=== PATIENT | female | born 1960 | race African-American/Black ===

== ENCOUNTER 2018-02-12 16:57 | Inpatient (IN) | payer OTHER ==
[~2018-02-12] VITALS: Ht 170.2 cm; Wt 77.6 kg
[2018-02-12 16:58] VITALS: BP 143/79
[2018-02-12 17:52] LABS: BILIRUBIN NEGATIVE (NEGATIVE); BLOOD NEGATIVE (NEGATIVE); CLARITY CLEAR (CLEAR); COLOR YELLOW (YELLOW); GLUCOSE 3+ (NEGATIVE); KETONE 1+ (NEGATIVE); LEUKO ESTERASE NEGATIVE (NEGATIVE); NITRITE NEGATIVE (NEGATIVE); SPECIFIC GRAVITY <= 1.005 (1.005-1.030); UROBILINOGEN 0.2 E.U./dl (0.2-1.0)
[2018-02-12 17:52] LABS: BASO % 0.5 % (0.0-1.0); HEMATOCRIT 38.7 % (37.0-47.0); HEMOGLOBIN 12.5 g/dl (12.0-16.0); LYMPH # 0.8 10*3/uL (1.3-4.4); LYMPH % 9.1 % (27.0-41.0); MEAN CELL VOLUME 91.7 fl (81.0-99.0); MEAN CORPUSCULAR HGB 29.6 pg (27.0-31.0); MEAN CORPUSCULAR HGB CONC 32.3 g/dl (33.0-37.0); MEAN PLATELET VOLUME 9.3 fl (9.6-12.3); MONO # 0.4 10*3/uL (0.1-1.0); NEUT # 7.6 10*3/uL (2.3-7.9); NEUT % 85.9 % (47.0-73.0); PLATELET COUNT AUTOMATED 356 10*3/uL (130-400); RED BLOOD COUNT 4.22 10*6/uL (4.10-5.10); RED CELL DISTRI WIDTH 13.1 % (0-14.5); WHITE BLOOD COUNT 8.8 10*3/uL (4.8-10.8)
[2018-02-12 18:00] LABS: URINE AMPHETAMINES < 1000 (1000ng/ml); URINE BARBITURATES < 200 (200ng/ml); URINE BENZODIAZEPINES < 200 (200ng/ml); URINE CANNABINOIDS (THC) < 50 (50ng/ml); URINE COCAINE > 300 (300ng/ml); URINE METHADONE < 300 (300ng/ml); URINE OPIATES < 300 (300ng/ml)
[2018-02-12 18:01] LABS: URINE PHENCYCLIDINE < 25 (25ng/ml)
[2018-02-12] MEDS ORDERED: GABAPENTIN800 MG PO (18:01)
[2018-02-12] MEDS ORDERED: LANTUS SOL100 UNIT/1 SQ (18:02)
[2018-02-12 18:03] LABS: WBC 16-20 wbc/hpf (0-5)
[2018-02-12] MEDS ORDERED: HUMALOG100 UNIT/2 SQ (18:06)
[2018-02-12 18:07] LABS: ALBUMIN 4.2 gm/dl (3.1-4.5); ALKALINE PHOSPHATASE 146 U/L (45-117); BUN 24 mg/dl (7-24); CHLORIDE 99 mmol/L (98-107); CREATININE 1.37 mg/dL (0.55-1.02); POTASSIUM 4.5 mmol/L (3.5-5.1); SGOT/AST 14 IU/L (3-35); SGPT/ALT 25 U/L (12-78); SODIUM 135 mmol/L (136-145); TOTAL PROTEIN 8.5 gm/dL (6.4-8.2)
[2018-02-12 18:25] LABS: ETHYL ALCOHOL < 3.0 mg/dl (<3)
[2018-02-12 18:35] LABS: ACETAMINOPHEN (TYLENOL) < 2.0 ug/ml (10-30)
[2018-02-12 20:20] VITALS: BP 167/73
[2018-02-12 20:24] VITALS: BP 138/90
[2018-02-12] MEDS ORDERED: AMOXICILLIN500 M2 PO (20:49)
[2018-02-12] MEDS ORDERED: PREDNISONE20 M1 PO (20:51)
[2018-02-13] VITALS: BP 110/60
[2018-02-13 06:04] LABS: BUN 19 mg/dl (7-24); CHLORIDE 111 mmol/L (98-107); CREATININE 0.73 mg/dL (0.55-1.02); POTASSIUM 3.9 mmol/L (3.5-5.1); SODIUM 143 mmol/L (136-145)
[2018-02-13 08:00] VITALS: BP 117/64
[2018-02-13] MEDS ORDERED: MULTI-VITAMIN1 EACH PO (10:45)
[2018-02-13] MEDS ORDERED: VITAMIN D35000 UNIT PO (10:46)
[2018-02-13] MEDS ORDERED: LIPITOR40 MG PO (10:46)
[2018-02-13 12:00] VITALS: BP 130/79
[2018-02-13 16:00] VITALS: BP 135/76
[2018-02-13 20:00] VITALS: BP 117/55
[2018-02-14] VITALS: BP 114/70
[2018-02-14 08:00] VITALS: BP 132/73
[2018-02-14 12:00] VITALS: BP 86/73
[2018-02-14 16:00] VITALS: BP 151/77
[2018-02-14 20:00] VITALS: BP 132/67
[2018-02-14 23:54] LABS: BASO % 0.6 % (0.0-1.0); EOS # 0.3 10*3/uL (0.0-0.4); EOS % 4.2 % (1.0-4.0); HEMATOCRIT 33.1 % (37.0-47.0); HEMOGLOBIN 10.5 g/dl (12.0-16.0); LYMPH # 2.4 10*3/uL (1.3-4.4); LYMPH % 35.6 % (27.0-41.0); MEAN CORPUSCULAR HGB 29.5 pg (27.0-31.0); MEAN CORPUSCULAR HGB CONC 31.7 g/dl (33.0-37.0); MEAN PLATELET VOLUME 9.2 fl (9.6-12.3); MONO # 0.5 10*3/uL (0.1-1.0); MONO % 7.9 % (3.0-9.0); NEUT # 3.4 10*3/uL (2.3-7.9); NEUT % 51.3 % (47.0-73.0); PLATELET COUNT AUTOMATED 312 10*3/uL (130-400); RED BLOOD COUNT 3.56 10*6/uL (4.10-5.10); RED CELL DISTRI WIDTH 13.2 % (0-14.5); WHITE BLOOD COUNT 6.7 10*3/uL (4.8-10.8)
[2018-02-15] VITALS (8 sets, daily range): BP systolic 107–169; BP diastolic 59–99
[2018-02-15 00:04] LABS: ACT PARTIAL THROMBO TIME 22.1 SECONDS (20.8-31.5); INTERNATIONAL NORM RATIO 0.9 (2.0-3.5)
[2018-02-15 00:10] LABS: ALBUMIN 3.2 gm/dl (3.1-4.5); ALKALINE PHOSPHATASE 106 U/L (45-117); BUN 16 mg/dl (7-24); CHLORIDE 105 mmol/L (98-107); CREATININE 0.79 mg/dL (0.55-1.02); PHOSPHOROUS 3.6 mg/dL (2.5-4.9); POTASSIUM 3.7 mmol/L (3.5-5.1); SGOT/AST 6 IU/L (3-35); SGPT/ALT 15 U/L (12-78); SODIUM 142 mmol/L (136-145); TOTAL PROTEIN 6.7 gm/dL (6.4-8.2)
[2018-02-15 00:11] LABS: TROPONIN I < 0.015 ng/ml (<0.045)
[2018-02-15 01:20] LABS: URINE AMPHETAMINES < 1000 (1000ng/ml); URINE BARBITURATES < 200 (200ng/ml); URINE BENZODIAZEPINES > 200 (200ng/ml); URINE COCAINE < 300 (300ng/ml); URINE METHADONE < 300 (300ng/ml); URINE OPIATES < 300 (300ng/ml)
[2018-02-15 01:21] LABS: URINE CANNABINOIDS (THC) < 50 (50ng/ml); URINE PHENCYCLIDINE < 25 (25ng/ml)
[2018-02-15 14:37] LABS: BASO # 0.1 10*3/uL (0.0-0.1); BASO % 1.2 % (0.0-1.0); EOS # 0.2 10*3/uL (0.0-0.4); EOS % 4.5 % (1.0-4.0); HEMATOCRIT 32.7 % (37.0-47.0); HEMOGLOBIN 10.4 g/dl (12.0-16.0); LYMPH # 1.6 10*3/uL (1.3-4.4); LYMPH % 31.6 % (27.0-41.0); MEAN CELL VOLUME 92.1 fl (81.0-99.0); MEAN CORPUSCULAR HGB 29.3 pg (27.0-31.0); MEAN CORPUSCULAR HGB CONC 31.8 g/dl (33.0-37.0); MEAN PLATELET VOLUME 8.5 fl (9.6-12.3); MONO # 0.4 10*3/uL (0.1-1.0); MONO % 8.6 % (3.0-9.0); NEUT # 2.7 10*3/uL (2.3-7.9); NEUT % 53.5 % (47.0-73.0); PLATELET COUNT AUTOMATED 282 10*3/uL (130-400); RED BLOOD COUNT 3.55 10*6/uL (4.10-5.10); WHITE BLOOD COUNT 5.1 10*3/uL (4.8-10.8)
[2018-02-15 14:44] LABS: ALKALINE PHOSPHATASE 111 U/L (45-117); BUN 12 mg/dl (7-24); CHLORIDE 106 mmol/L (98-107); CREATININE 0.82 mg/dL (0.55-1.02); POTASSIUM 3.8 mmol/L (3.5-5.1); SGOT/AST 8 IU/L (3-35); SGPT/ALT 15 U/L (12-78); SODIUM 142 mmol/L (136-145); TOTAL PROTEIN 6.5 gm/dL (6.4-8.2)
[2018-02-16] VITALS: BP 152/68
[2018-02-16 04:00] VITALS: BP 148/62
[2018-02-16 07:45] VITALS: BP 172/92; BP 712/92
[2018-02-16] MEDS ORDERED: NATURE'S BLEND100 M2 PO (11:35)
[2018-02-16] MEDS ORDERED: Humalog SQ ×2 (11:35→11:45)
[2018-02-16] MEDS ORDERED: NATURE'S BLEND F1 MG PO (11:35)
[2018-02-16] MEDS ORDERED: ATARAX,VISTARIL50 MG PO (11:35)
[2018-02-16] MEDS ORDERED: Lantus SC ×2 (11:35→11:45)
== END 2018-02-16 12:23 | disposition home or self-care (01) | DRG 682 ==
LOC: ED 16:57 → EDHOLD 19:40 → 5E 19:40
PROVIDERS: Internal Medicine; Physician Assistant
DX: N17.0 Acute kidney failure with tubular necrosis (principal); G93.41 Metabolic encephalopathy; E83.41 Hypermagnesemia; E11.65 Type 2 diabetes mellitus with hyperglycemia; F10.230 Alcohol dependence with withdrawal, uncomplicated; E87.1 Hypo-osmolality and hyponatremia; F31.30 Bipolar disorder, current episode depressed, mild or moderate severity, unspecified; R07.9 Chest pain, unspecified; F14.10 Cocaine abuse, uncomplicated; F41.9 Anxiety disorder, unspecified; E86.0 Dehydration; R74.8 Abnormal levels of other serum enzymes; R82.4 Acetonuria; R81 Glycosuria; D72.810 Lymphocytopenia; I10 Essential (primary) hypertension; E78.5 Hyperlipidemia, unspecified; G62.9 Polyneuropathy, unspecified; E66.3 Overweight; F19.10 Other psychoactive substance abuse, uncomplicated; Z90.710 Acquired absence of both cervix and uterus; Z82.49 Family history of ischemic heart disease and other diseases of the circulatory system; Z79.4 Long term (current) use of insulin; Z80.9 Family history of malignant neoplasm, unspecified; Z68.26 Body mass index [BMI] 26.0-26.9, adult

== ENCOUNTER 2018-11-16 16:05 | Inpatient (IN) | payer OTHER ==
[~2018-11-16] VITALS: Ht 170.1 cm; Wt 68.0 kg
--- NOTE | ~2018-11-16 | PN ---
[place], [place] PROGRESS NOTE NAME: NOAH HUFF UNIT #: [id number] ROOM: 310 DOCTOR: NETO REGALADO MD BIRTHDATE: [birth year] DATE: 11/20/18 ADDENDUM: Resident note reviewed. Agree with observations, recommendations, and overall treatment plan. NETO REGALADO MD CM:PNTRANS [id number] NETO REGALADO MD 12/19/18 1413 TORIBIO HUMPHRIES MIS.LLR
--- NOTE | ~2018-11-16 | DS ---
[place], [place] DISCHARGE SUMMARY [id number] UN[facility] #: [id number] ROOM: 310 DOCTOR: NETO REGALADO MD BIRTHDATE: [birth year] DOS: 11/22/2018 CHIEF COMPLAINT: "I am addicted and I need to go to rehab". HISTORY OF PRESENT ILLNESS: This is a 58-year-old black female who has a lengthy history of depression. She presented to [facility] Emergency Room for psychiatric evaluation. She recently was discharged from the medical floor where she had had suicidal ideation as well as some physical complaints that include chest pain. The patient was at [facility] and stated that she was tired of living and she was then subsequently brought into the Emergency Room for evaluation. The patient endorses a history of alcohol and cocaine abuse. Psychiatrically, she endorses significant depression with multiple neurovegetative symptoms that include poor sleep and appetite, anergia, anhedonia, hopeless, helpless feelings, crying spells, and inability to cope. She also has command auditory hallucinations telling her to hurt herself. She was admitted to rule out organic factors and to stabilize on medication. SUMMARY OF HOSPITAL COURSE: The patient was admitted and routine laboratory examinations revealed her to have a low vitamin D level of 30. She was started on vitamin D 50,000 International Units weekly. She was continued on her multivitamin regimen because of her history of substance abuse. Remeron 15 mg at bedtime was started to combat the depression. This was later increased to 30 mg at bedtime to lessen sedation. The patient was started ultimately on Latuda 40 mg at bedtime to combat on the command auditory hallucinations. The dose was increased to 80 mg at bedtime with good effect. The patient slept well. The auditory hallucinations eventually completely dissipated. She was able to attend to her ADLs and attend to groups. Sleep and appetite improved. The only sedation she had was mild somnolence during the early part of the day, which dissipated as the day went on. The somnolence was not so bad that it interfered with her ability to function. The patient had improved sufficiently by 11/22/2018 to return home. MENTAL STATUS AT DISCHARGE: She is alert and oriented. Mood is euthymic. Affect appropriate. Speech rate and pattern is within normal limits. There are no depressive symptoms seen. There are no suicidal thoughts, homicidal thoughts, or self-injurious thoughts. No hypomania or avel. No auditory or visual hallucinations, delusions or paranoia. Memory is intact. FINAL DIAGNOSES: Major depression, recurrent, severe; dysthymic disorder and polysubstance abuse. DISPOSITION: All of her prescriptions have been e-scribed to [facility]. At the time of discharge, she is medically and psychiatrically stable. [place], [place] DISCHARGE SUMMARY NAME: NOAH HUFF UNIT #: [id number] ROOM: 310 DOCTOR: NETO REGALADO MD BIRTHDATE: [birth year] NETO REGALADO MD CM:DISCHARG [id number] NETO REGALADO MD 11/22/18 1131 interface
--- NOTE | ~2018-11-16 | PN ---
[place], [place] PROGRESS NOTE NAME: NOAH HUFF UNIT #: [id number] ROOM: 310 DOCTOR: NETO REGALADO MD BIRTHDATE: [birth year] DATE: 11/21/18 ADDENDUM: Resident note reviewed. Agree with observations, recommendations, and overall treatment plan. NETO REGALADO MD CM:PNTRANS [id number] NETO REGALADO MD 12/19/18 1414 TORIBIO HUMPHRIES MIS.LLR
--- NOTE | ~2018-11-16 | PR ---
[place], [place] PROGRESS NOTE NAME: NOAH HUFF UNIT #: [id number] ROOM: 310 DOCTOR: NETO REGALADO MD BIRTHDATE: [birth year] DOS: 11/19/2018 CHIEF COMPLAINT: "I think I am feeling a little better." SUMMARY OF THE VISIT: The patient was interviewed as she was sitting with female peers. She was almost done with her breakfast. She engaged readily in conversation, reporting that she is still depressed and still hearing voices, but is feeling slightly better than when she did upon admission. MENTAL STATUS: She is alert and oriented to person, place, and time. Mood does seem to be strongly trending towards euthymia. She still endorses some psychotic symptoms. She denies any mood lability or hypomania or avel. She convincingly denies any medication side effects and no sedation or somnolence is noted. PLAN: I will add Latuda to augment the effectiveness of the Remeron. I will also check a Neurontin level in the a.m. to ensure that it is therapeutic. We will engage in individual and high milieu activity, returning to the least restrictive environment when psychiatrically stable. NETO REGALADO MD CM:PNTRANS [id number] NETO REGALADO MD 11/20/18 0019 interface
--- NOTE | ~2018-11-16 | PR ---
[place], [place] PROGRESS NOTE NAME: NOAH HUFF UNIT #: [id number] ROOM: 310 DOCTOR: JO ANN COYLE DO BIRTHDATE: [birth year] DOS: 11/20/2018 PSYCHIATRIC PROGRESS NOTE CHIEF COMPLAINT: Depressed gentleman telling her to kill herself. SUMMARY OF VISIT: The patient is interviewed while sitting on her bed in her bedroom. She states she is very depressed and still hearing voices in her head to kill herself. She claims it is a gentleman's voice. She states that sleep does help her ignore her voices, when prompted on what helps her deal with the voices in her head. The patient does state she does feel safe here, but she is wondering when she will be getting out of here. She says when she is out of here, she does not want someone following her. Per nursing staff, the patient is calm and interactive. She is considered more stable than depressed overnight after the other residents in the facility were discharged. The patient has not had any more complaints of constipation and she did not need a dose of her MiraLax medication that is ordered p.r.n. The patient also slept about 7 hours overnight. MENTAL STATUS EXAMINATION: She is alert and oriented to person, place and time. Mood does appear to be more euthymic. She still endorses some psychiatric symptoms such as hearing voices to kill herself. She denies any mood lability, hypomania or avel. She denies any medication side effects and no sedation is noted. PLAN: The Neurontin level will be checked this morning. Current result is pending. We will increase her Latuda to 80 mg at bedtime. We will continue to engage in individual and high milieu activity, returning to the least restrictive environment when psychiatrically stable. Jo Ann RiderjerrellDO [place], [place] PROGRESS NOTE NAME: NOAH HUFF UNIT #: [id number] ROOM: 310 DOCTOR: JO ANN COYLE DO BIRTHDATE: [birth year] NETO REGALADO MD CM:TARI [id number] JO ANN COYLE DO 12/11/18 1324 interface
--- NOTE | ~2018-11-16 | PR ---
[place], [place] PROGRESS NOTE [id number] #: [id number] ROOM: 310 DOCTOR: SHANNAN OSBORNE CNP BIRTHDATE: [birth year] DOS: 11/18/2018 CHIEF COMPLAINT: "I think I'm doing better." SUMMARY OF VISIT: The patient was interviewed as she sat in the activities room. She engaged readily in conversation with me. She reports that she still has suicidal ideation; however, she has no current plan to hurt herself. Staff reports that patient slept well last night. Her appetite has been good and that some other patients have been giving her their food. However, the patient reports she did not eat anyone else's food. She only ate what was on her plate. MENTAL STATUS EXAMINATION: The patient is alert and oriented x 3. She is pleasant and cooperative with me. No avel or hypomania noted. No delusions or paranoia noted. No psychotic symptoms noted. No auditory or visual hallucinations noted. Her mood was calm, seems to be trending more toward euthymia. Her affect was appropriate. Her judgment and insight are fair. PLAN: We will increase the patient's Remeron to 30 mg at bedtime in order to help with her depression symptoms. We will monitor patient's p.o. intake. The patient's appetite seems to increase. We may need to consider a different antidepressant for this patient. We will continue the patient to be in line of sight due to the fact that she still has suicidal ideations. We will continue to encourage the patient to engage in individual and high milieu activity, continue fall and safety precautions. Plan is to return to the patient to the least restrictive environment once considered psychiatrically stable. The patient does desire to return to rehabilitation for her drug and alcohol abuse upon discharge from the Behavioral Health Unit. Shannan Osborne CNP CM:PNTRANS [id number] SHANNAN OSBORNE CNP 11/19/18 0327 interface
--- NOTE | ~2018-11-16 | PR ---
[place], [place] PROGRESS NOTE NAME: NOAH HUFF UNIT #: [id number] ROOM: 310 DOCTOR: JO ANN COYLE DO BIRTHDATE: [birth year] DOS: 11/21/2018 PSYCHIATRIC PROGRESS NOTE CHIEF COMPLAINT: "Morning." SUMMARY OF VISIT: The patient is sleeping in bed and was able to be aroused, to be interviewed in her bedroom. The patient states she feels a lot better and that the voices in her head are gone. She did mention that she slept good when asked how her night was. She admits that the medications are making her more tired than usual. She also states she is still hungry after eating breakfast. Throughout the interview, the patient is polite and calm. Per nursing staff, the patient slept 8 hours overnight, but needed to take a nap this morning because she has been more tired lately. Also, staff stated that the patient is unable to return to her previous rehab facility because she was doing drugs; however, the patient believes she is unable to return because she thinks her A1c is too high to be going to that rehab place. MENTAL STATUS EXAMINATION: She is alert and oriented to person, place, and time. Mood is more euthymic. She denies any visual or auditory hallucinations. She denies any mood, lability or hypomania or avel. She admits to side effects of fatigue from her medications. PLAN: Continue current medication regimen, monitor and support, engage in individual and high milieu activity, returning then to the least restrictive environment when psychiatrically stable. We plan to discharge her tomorrow. Jo Ann Coyle, DO NETO REGALADO MD CM:PNYEFRI 1227 JO ANN COYLE DO 11/21/18 1644 interface
--- NOTE | ~2018-11-16 | WRIGHTHP ---
[place], [place] PATIENT HISTORY AND PHYSICAL EXAM [id number] UN[facility] #: [id number] ROOM: 310 DOCTOR: SHANNAN OSBORNE CNP BIRTHDATE: [birth year] DOS: 11/17/2018 CHIEF COMPLAINT: "I am addicted and need to go to rehab. HISTORY OF PRESENT ILLNESS: This is a 58-year-old -F[place]ish woman with a history of mood disorder who had presented to the [facility] Unit for psychiatric evaluation. The patient had been recently discharged from the medical floor for suicidal ideation where she had been in for suicidal ideation and chest pain. The patient was at [facility] when she stated that she was just tired of life. The patient has a history of alcohol and cocaine abuse. The patient reports that she has a plan to overdose of pills. She has a previous suicide attempt last month by overdosing. The patient was admitted to the Behavioral Health Unit to rule out any further organic factors and to attempt to stabilize her on medication. The patient will be encouraged to engage in individual and high milieu activity. Fall and safety precautions will be followed. The plan is to return to the patient to the least restrictive environment when she is considered psychiatrically stable. PAST MEDICAL HISTORY: Remarkable for alcohol dependence, anxiety, bipolar, depression, cocaine abuse, diabetes, hyperlipidemia, hypertension, neuropathy, and suicidal ideation with attempt. SOCIAL HISTORY: The patient does use a large amount of alcohol. The patient admits to illicit drug use, which consists of crack cocaine. She is a nonsmoker. STRENGTHS: The patient is ambulatory and she does have good verbal skills. WEAKNESSES: The patient has major depression, poor coping skills, and polysubstance abuse. MENTAL STATUS: The patient is alert and oriented to person, place and time. She is pleasant and cooperative with me. No overt avel or hypomania noted. No delusions or paranoia noted. No psychotic symptoms noted. No auditory or visual hallucinations noted. The patient's mood is depressed. Her affect is flat. Her speech is clear. Eye contact was good. Insight and judgment are poor. Short-term and long-term memory are intact for the most part. DIAGNOSES: Major depressive disorder, recurrent, severe; substance use disorder. PLAN: The patient's labs were reviewed. Her vitamin D level is 30, so we will start the patient on vitamin D 50,000 international units once weekly. Continue thiamine 100 mg daily. Continue Remeron 15 mg at bedtime to aid in depression as well as to aid in sleep. She seemed to tolerate the medication last night. We will consider increasing the Remeron to 30 mg tomorrow. Her TSH level is decreased at 0.339. We will consult the medical doctor to follow up with this. She also has a hemoglobin A1c of 13.7. I will ask the medical doctor to follow with this as well. Encourage the patient to engage in individual and high [place], [place] PATIENT HISTORY AND PHYSICAL EXAM NAME: NOAH HUFF UNIT #: [id number] ROOM: 310 DOCTOR: SHANNAN OSBORNE CNP BIRTHDATE: [birth year] milieu activity. We will continue fall and safety precautions. Plan to return the patient to the least restrictive environment when she is considered psychiatrically stable. I would recommend considering that the patient to be able to return to the rehab to continue her drug and alcohol treatment. Shannan Osborne CNP CM:HISPHYS:PATIENT HISTORY AND PHYSICAL EXAMINATION [id number] SHANNAN OSBORNE CNP 11/17/18 1356 interface
[~2018-11-16 16:05] MED LIST: ADMELOG SO100 UNIT/1 SQ; AMOXICILLIN500 M2 PO; ATARAX,VISTARIL50 MG PO; BASAG SOL SQ; GABAPENTIN800 MG PO; HUMALOG100 UNIT/2 SQ; Humalog SQ; LANTUS SOL100 UNIT/1 SQ; LIPITOR40 MG PO; Lantus SC; MULTI-VITAMIN1 EACH PO; NATURE'S BLEND F1 MG PO; NATURE'S BLEND100 M2 PO; PREDNISONE20 M1 PO; VITAMIN D35000 UNIT PO
[2018-11-16] MEDS ORDERED: TRAZODONE50 MG PO (16:41)
[2018-11-16] MEDS ORDERED: VISTARIL50 MG PO (16:42)
[2018-11-16 17:16] VITALS: BP 160/78
[2018-11-16 17:48] VITALS: BP 160/78
--- NOTE | 2018-11-16 18:15 | NUR ---
TWILA JANE UPDATED OPN PT ADMISSION
--- NOTE | 2018-11-16 18:18 | NUR ---
NOAH HUFF a 58 year old F admitted via WHEELCHAIR from the 4TH FLOORS as a voluntary admission. Arrived on unit at 1712 . ALLERGIES: NKA . Vital signs are: 98.2-68-18 160/78. The client signed the following forms with stated understanding: Authorization For The Release of Medical Information, Clothing List, Consent to Voluntary Admission and Hospitalization, Consent and Release Forms/Receipt of Rights, Acknowledgement of Advance Directive Information, Behavioral Health Consent Form, and Informed Consent of Medications. Admitted under the services of Dr. SABINE MEHTA,[facility]. A search was conducted and hazardous articles were removed. Client was oriented to the unit. VIDA RIOS
--- NOTE | 2018-11-16 18:24 | NUR ---
MESSAGE LEFT FOR SARAH LÓPEZ TO UPDATE ON PT SUICIDE SCORE.
--- NOTE | 2018-11-16 18:33 | NUR ---
SPOKE WITH DR. SALDAÑA RE:MEDICAL MANAGEMENT CONSULT NEEDED, PER DR. SCHNEIDER CONSULT UNDER DR. GARNER
--- NOTE | 2018-11-16 19:29 | NUR ---
SPOKE WITH SHANNAN SMITH, UPDATED ON PT SUICIDE SCORE, NEW ORDERS RECEIVED FOR PT TO BE LINE OF SIGHT.
--- NOTE | 2018-11-16 19:31 | NUR ---
NURSING SUPERVISOR HARD CANDY UPDATED ON LINE OF SIGHT ORDERS.
[2018-11-16 20:00] VITALS: BP 154/80
--- NOTE | 2018-11-17 05:12 | NUR ---
24 HR chart check completed.
--- NOTE | 2018-11-17 05:20 | NUR ---
DURING HS MED PASS PT WAS REQUESTING DOUBLE MEDICATION. PT ALSO ASKED IF SHE COULD LOCK HER DOOR TO HER ROOM. UNIT RULES AND SAFETY PRECAUTIONS REVIEWED WITH PT AT THIS TIME.
--- NOTE | 2018-11-17 05:47 | NUR ---
PT SLEPT GREATER THAN 7 HOURS THIS SHIFT. LINE OF SIGHT MAINTAINED.
[2018-11-17 07:28] LABS: BASO # 0.1 10*3/uL (0.0-0.1); BASO % 0.8 % (0.0-1.0); EOS # 0.2 10*3/uL (0.0-0.4); EOS % 4.1 % (1.0-4.0); HEMATOCRIT 37.9 % (37.0-47.0); HEMOGLOBIN 12.2 g/dl (12.0-16.0); LYMPH # 2.5 10*3/uL (1.3-4.4); LYMPH % 41.6 % (27.0-41.0); MEAN CELL VOLUME 93.6 fl (81.0-99.0); MEAN CORPUSCULAR HGB 30.1 pg (27.0-31.0); MEAN CORPUSCULAR HGB CONC 32.2 g/dl (33.0-37.0); MEAN PLATELET VOLUME 9.4 fl (9.6-12.3); MONO # 0.4 10*3/uL (0.1-1.0); MONO % 6.6 % (3.0-9.0); NEUT # 2.8 10*3/uL (2.3-7.9); NEUT % 46.7 % (47.0-73.0); PLATELET COUNT AUTOMATED 331 10*3/uL (130-400); RED BLOOD COUNT 4.05 10*6/uL (4.10-5.10); RED CELL DISTRI WIDTH 12.1 % (0-14.5); WHITE BLOOD COUNT 5.9 10*3/uL (4.8-10.8)
[2018-11-17 07:47] VITALS: BP 154/80
[2018-11-17 08:03] LABS: CHLORIDE 110 mmol/L (98-107); POTASSIUM 3.8 mmol/L (3.5-5.1); SODIUM 142 mmol/L (136-145)
[2018-11-17 08:17] LABS: ALBUMIN 3.2 gm/dl (3.1-4.5); ALKALINE PHOSPHATASE 90 U/L (45-117); BUN 14 mg/dl (7-24); CHOLESTEROL 214 mg/dL (<200); CREATININE 0.57 mg/dL (0.55-1.02); HDL CHOLESTEROL 54 mg/dl (40-60); LDL CHOLESTEROL 108 mg/dL (9-159); SGOT/AST 10 IU/L (3-35); SGPT/ALT 21 U/L (12-78); THYROID STIM HORMONE (HS) 0.339 uIU/ml (0.358-4.75); TOTAL PROTEIN 6.6 gm/dL (6.4-8.2); TRIGLYCERIDES 262 mg/dl (<150); VLDL CHOLESTEROL 52 mg/dL (6-40)
--- NOTE | 2018-11-17 10:08 | NUR ---
P(MEDICAL)-PT IS C/O CONSTIPATION X 3 DAYS. P(PSYCHOLOGICAL)-PT ISOLATIVE AND WITHDRAWN TO ROOM. PT ADMITS TO INTERMITTENT SUICIDAL IDEATIONS. PT STATES SHE DOES HAVE A PLAN THAT CANNOT BE CARRIED OUT HERE. PT REFUSES TO ELABORATE ON PLAN. PT DOES STATES SHE FEELS HOPELESS. I-PT GIVEN MOM 30CC PER PRN ORDER. BOWEL SOUNDS ACTIVE X4. ABDOMEN SOFT AND NONTENDER. PT GIVEN 1:1 FOR EMOTIONAL SUPPORT. PT PROVIDED WITH COPING SKILLS. ENCOURAGED PT TO VERBALIZE NEEDS AND SUICIDAL THOUGHT PROCESSES THEY OCCUR. R-PT STATES THAT SHE WOULD BE BETTER IF SHE GOT SOME DEODORANT. PT STATES SHE WOULD COME TO STAFF IF NEGATIVE THOUGHT PROCESSES OCCUR. P-WILL CONTINUE TO MONITOR PT FOR BOWEL MOVEMENTS. WILL CONTINUE TO PROVIDE EMOTIONAL SUPPORT. WILL MAINTAIN PT A LINE OF SIGHT PER ORDER. WILL REDIRECT AND ENCOURAGE CONTINUED MEDICATION COMPLIANCE.
--- NOTE | 2018-11-17 11:34 | NUR ---
AM GROUP/EXERCISES/BINGO PT ATTENDED AND PARTICIPATED DURING GROUP. PT ON TASK AND INTERACTIVE WITH PEERS. PT DID STATE "MY KIDS WOULD ONLY CARE ABOUT ME IF I WAS , ISNT THAT SAD?" "I HAVE LOST JOSE IN MYSELF" THIS STAFF ENCOURAGES PT THAT IT IS POSSIBLE TO FIND JOSE IN HERSELF AGIAN. PT STATES "I AM LOOKING FORWARD TO AFTERNOON GROUP".
--- NOTE | 2018-11-17 13:56 | NUR ---
psychosocial hx completed this date.
--- NOTE | 2018-11-17 14:44 | NUR ---
DR CARRILLO CALLED AND WILL ORDER COUGH SYRUP DUE TO PATIENT COMPLIANT OF COUGH
--- NOTE | 2018-11-17 16:10 | NUR ---
PM GROUP/LEISURE SKILLS PT ATTENDED AND PARTICIPATED. PT PLEASANT AND ON TASK INTERACTIVE WITH PEERS. PT DID NOT EXPRESS ANY SUICIDAL IDEATIONS AT THIS TIME OR HALLUCINATIONS. PT WILL CONTINUE TO ATTEND AND PARTICIPATE IN FUTURE GROUP SESSIONS.
--- NOTE | 2018-11-17 18:26 | NUR ---
Shift chart check completed.
--- NOTE | 2018-11-17 18:26 | NUR ---
MOM EFFECTIVE. PT HAD MEDIUM BOWEL MOVEMENT TODAY.
[2018-11-17 20:00] VITALS: BP 115/67
--- NOTE | 2018-11-18 05:50 | NUR ---
PT SLEPT APPROXIMATELY 7 HOURS THIS SHIFT. Q15 MINUTE SAFETY CHECKS MAINTAINED.
[2018-11-18 07:38] VITALS: BP 124/69
--- NOTE | 2018-11-18 10:40 | NUR ---
AND DR. CARRILLO ON UNIT TO ASSESS PT
--- NOTE | 2018-11-18 11:51 | NUR ---
P: MOOD IS DEPRESSED, SUICIDAL THOUGHTS, PT ISOALTIVE TO ROOM AT TIMES THROUGHOUT THE DAY I: ENCOURAGED PT TO PARTICIPATE IN GROUPS/ACTIVITIES, PROVIDED EMOTIONAL SUPPORT AND 1:1 FOR PT TO VOICE FEELINGS, ENCOURAGED PT TO TALK WITH STAFF RE: SUICIDAL THOUGHTS R: PT STATED "STAFF AIN'T GO NO TIME TO TALK TO ME" ADVISED PT THAT WE ARE HERE FOR HER AND WE DO HAVE TIME TO SPEAK WITH HER, PT DELCINED TO SPEAK TO THIS NURSE AT THIS TIME. P: PT REMAINS LINE OF SIGHT PER ORDERS, ENCOURAGE PT TO PARTICIPATE IN GROUPS/ACTIVITIES, PROVIDE EMOTIONAL SUPPORT AND 1:1 FOR PT TO VOICE FEELING AND ENCOURAGE PT TO VOICE FEELINGS TO STAFF, VERBALLY CONTRACTED FOR SAFETY WITH STAFF PT ALERT TO PERSON, PLACE, TIME AND SITUATION. PT MED COMPLIANT WITHOUT DIFFICUTLY, MED EDUCATION PROVIDED. PT AMBULATORY THROUGHOUT UNIT, GAIT STEADY. PT CONTINENT OF BOWEL AND BLADDER. NO HALLUCINATIONS OR DELUSIONS NOTED.
--- NOTE | 2018-11-18 17:53 | NUR ---
PT C/O CONSTIPATION, MEDICATED WITH PO PRN MILK OF MAG PER ORDERS.
[2018-11-18 20:00] VITALS: BP 120/74
--- NOTE | 2018-11-19 04:07 | NUR ---
A&O X4. DEPRESSED MOOD. CALM. INTERACTIVE. NO HALLUCINATIONS OR DELUSIONS NOTED. MEDICATION COMPLIANT. MEDICATION EDUCATION PROVIDED. Q15 MINUTE SAFETY CHECKS MAINTAINED. SUICIDAL PRECAUTIONS MAINTAINED. SEE [facility] FLOWSHEET FOR SPECIFIC MONITORING.
--- NOTE | 2018-11-19 04:27 | NUR ---
24 HR chart check completed.
--- NOTE | 2018-11-19 06:22 | NUR ---
PT SLEPT APPROXIMATELY 7 HOURS THIS SHIFT. Q15 MINUTE SAFETY CHECKS MAINTAINED.
[2018-11-19 07:51] VITALS: BP 112/59
--- NOTE | 2018-11-19 08:00 | NUR ---
PT AWAKE, ALERT AND VERBAL. EATING BREAKFAST IN DINING ROOM WITH PEERS. LINE OF SIGHT OBSERVATION MAINTAINED. ON UNIT TO SEE PT AT THIS TIME, STATES TO CONTINUE LINE OF SIGHT UNTIL HE REASSESS PT TOMORROW.
--- NOTE | 2018-11-19 08:15 | NUR ---
Treatment Plan meeting with Dr. Pelletier RN, AT and [facility]. Plan for discharge at the end of the week. Working with patient to coordinate discharge plans.
--- NOTE | 2018-11-19 11:18 | NUR ---
ON UNIT TO SEE PT AT THIS TIME, UPDATE GIVEN.
--- NOTE | 2018-11-19 11:42 | NUR ---
AM GROUP/CRAFTS/MUSIC PT ATTENDED AND PARTICIPATED. A PEER ASKED PT WHAT WAS WRONG DUE TO BEING PT BEING QUIET PT STATES "I'M JUST A DEPRESSED PERSON, I GET LIKE THIS SOMETIMES". PT DID NOT EXPRESS SUICIDAL IDEATIONS AT THIS TIME OR ANY HALLUCINATIONS. PT WILL CONTINUE TO BE ENCOURAGED TO ATTEND AND PARTICIPATE IN FUTRE GROUP SESSIONS.
--- NOTE | 2018-11-19 12:00 | NUR ---
P- DEPRESSED MOOD, SUICIDAL IDEATIONS. I- ORIENTATION, MOOD AND BEHAVIOR ASSESSED. ASSESSED PT FOR SI/HI, INTENT OR PLAN. ASSESSED PT FOR S/S HALLUCINATIONS, PARANOIA AND/OR DELUSIONS. MEDICATIONS ADMINISTERED PER PHYSICIAN'S ORDERS. ENCOURAGED PT TO ATTEND AND PARTICIPATE IN [facility] [facility] GROUPS AND ACTIVITIES. LINE OF SIGHT OBSERVATION MAINTAINED. R- PT IS ALERT AND ORIENTED X4. MEMORY APPEARS TO BE INTACT. RESPS EASY AND EVEN ON ROOM AIR. UPON ASSESSMENT THIS AM MOOD APPEARS OVERWHELMINGLY DEPRESSED WITH FLAT AFFECT. SPEECH IS WNL AND COHERENT, ABLE TO MAKE NEEDS KNOWN WITHOUT DIFFICULTY. PT ENDORSES SUICIDAL THOUGHTS BUT DENIES SPECIFIC PLAN. PT STATES "NO MA'AM, I HAD A PLAN BEFORE BUT I DON'T NOW". PT VERBALLY CONTRACTS FOR SAFETY. SUICIDAL PRECAUTIONS AND LINE OF SIGHT MAINTAINED. PT DENIES HALLUCINATIONS INCLUDING COMMAND HALLUCINATIONS. NO S/S INTERNAL STIMULI NOTED. PT IS MEDICATION COMPLIANT WITHOUT DIFFICULTY. PT IS AMBULATORY WITH STEADY GAIT, INDEPENDENT WITH ADLS, CONTINENT OF BOWEL AND BLADDER. DISPLAYS GOOD APPETITE WITH ADEQUATE FLUID INTAKE. PT IS CALM, PLEASANT AND COOPERATIVE. POSITIVE INTERACTIONS NOTED WITH BOTH STAFF AND PEERS. PT ATTENDED MORNING GROUP. P- PLAN TO CONTINUE TREATMENT; CONTINUE TO MONITOR MOOD AND BEHAVIORS, CONTINUE SUICIDIAL MONITORING AND PRECAUTIONS PER POLICY. CONTINUE TO ENCOURAGE MEDICATION COMPLIANCE WELL GROUP ATTENDANCE AND PARTICIPATION. CONTINUE LINE OF SIGHT OBSERVATION.
--- NOTE | 2018-11-19 13:30 | NUR ---
PT C/O CONSTIPATION, +BSx4, OFFERED PT MILK OF MAGNESIA PER PRN ORDER, PT DECLINED, STATES IT DOES NOT WORK FOR HER. PT STATED SHE WOULD RATHER TRY APPLE JUICE. APPLE JUICE 240CC PROVIDED. WILL MONITOR FOR EFFECTIVENESS.
--- NOTE | 2018-11-19 14:30 | NUR ---
Spoke with Patient in the Dining Area. Pt. resides in [place] and would like to go to [facility] if beds available. If no beds Patient will return home with Follow up with Yaniv Osborne and [facility]. Will reach out to [facility] today.
--- NOTE | 2018-11-19 15:37 | NUR ---
PM GROUP/MOVIE/LEISURE SKILLS PT ATTENDED AND PARTICIPATED DURING GROUP. PT PLEASANT AND ON TASK. PT EXPRESSES NO S.I. OR HALLUCINATIONS AT THIS TIME. PT WILL CONTINUE TO ATTEND AND PARTICIPATE IN FUTURE GROUP SESSIONS.
--- NOTE | 2018-11-19 15:43 | NUR ---
PT CONTINUES TO C/O CONSTIPATION, STATES APPLE JUICE INEFFECTIVE. PT REQUESTS THIS NURSE PHONE PHYSICIAN FOR SOMETHING ELSE FOR RELIEF OF CONSTIPATION MILK OF MAG IS INEFFECTIVE AND PT STATES SHE HAS NOT GONE FOR 4 DAYS. +BSx4. CALL PLACED TO AND MADE AWARE OF THE ABOVE. STATES HE WILL ENTER NEW ORDERS.
--- NOTE | 2018-11-19 16:58 | NUR ---
Referral to [facility]. Attn: Anne Marie. [phone]. Will reach [facility] to Radiology [facility]
--- NOTE | 2018-11-19 18:39 | NUR ---
MOOD HAS APPEARED TO IMPROVE T/O SHIFT. PT LESS ISOLATIVE T/O SHIFT. PT STATES SHE IS FEELING "MUCH BETTER" THE DAY GOES ON. PT CURRENTLY DENIES SUICIDAL IDEATIONS, STATES "NO, I'M NOT HAVING THOSE THOUGHTS ANYMORE". PT VERBALLY CONTRACTED TO SAFETY AND AGREES TO COME TO STAFF IF SUICIDAL THOUGHTS REOCCUR. LINE OF SIGHT OBSERVATION MAINTAINED. PT IN DINING ROOM WATCHING MOVIE WITH PEERS AND STAFF THIS EVENING.
--- NOTE | 2018-11-19 18:43 | NUR ---
SHIFT CHART CHECK COMPLETED.
[2018-11-19 20:01] VITALS: BP 146/61
--- NOTE | 2018-11-20 06:22 | NUR ---
PT SLEPT APPROXIMATELY 7 HOURS THIS SHIFT. Q15 MINUTE SAFETY CHECKS MAINTAINED.
[2018-11-20 07:46] VITALS: BP 121/67
--- NOTE | 2018-11-20 07:52 | NUR ---
PT AWAKE, ALERT AND VERBAL. EATING BREAKFAST IN DINING ROOM WITH PEERS.
--- NOTE | 2018-11-20 09:00 | NUR ---
Treatment Plan meeting with Dr. Pelletier, RN, AT and Mining Engineering Technologist. Plan for discharge possible . [facility] day program for Drug and Alcohol Treatment. Referral was faxed yesterday. Will Follow with [facility] today.
--- NOTE | 2018-11-20 09:31 | NUR ---
GAVE VERBAL ORDER TO D/C LINE OF SIGHT OBSERVATION, PLACE PT ON ROUTINE Q15 MIN SAFETY CHECKS.
--- NOTE | 2018-11-20 11:30 | NUR ---
Call Placed to [facility] and Spoke with Josi. Josi advised that patient was only at facility 2 days and was hiding drugs in her Vagina. Patient developed Suicidal Behaviors when confronted with having drugs on the property and stated that she "Just wanted to kill herself. There was no discharge plan in place at the time that patient discharged to [facility]. 12:54 p.m. Content Administrator from [facility] Stephanie Dickson Visits and discuss discharge Plans with patient. Referral faxed to [facility] and they do have beds available at this time. [phone]. Chaparrita states she will review and get back to knockdown worker. Received call from Issac at [facility] and they are unable to accept patient due to Medical Complexity with Diabetes. Referral faxed to [facility] Attn: Lisette. Spoke with Lisette who advised that patient insurance is not accepted at their facility. Waiting on Phone Call From [facility]. Pt. however states that "staff is mean" and She does not want to go there"
--- NOTE | 2018-11-20 11:41 | NUR ---
AM GROUP/ART AND COLOR THERAPY PT WAS IN BED AT THE START OF GROUP AND WAS ENCOURAGED TO ATTEND. PT CAME TO GROUP, LOOKED AROUND AND ASKED, "ARE WE HAVING GROUP?" I TOLD HER WE WERE AND SHE STATED WHILE WALKING OUT, "I CAN'T BE AROUND ALL THESE PEOPLE, THIS IS CRAZY, THEY ALL GONNA BE IN HERE?" IT WAS EXPLAINED THAT THEY WERE NURSING STUDENTS HERE TO LEARN AND HELP BUT PT CHOSE NOT TO STAY.
--- NOTE | 2018-11-20 11:46 | NUR ---
Call Placed to [facility]. Spoke with Issac at Ext [phone]. Currently a Nurse is still reviewing Patient Referral. Advised Issac that answer would need to be received today. Issac States " I will call by the end of the day". Will Follow.
--- NOTE | 2018-11-20 13:26 | NUR ---
PRN MIRALAX 17GM GIVEN AT THIS TIME FOR PT C/O CONSTIPATION. WILL MONITOR FOR EFFECTIVENESS.
--- NOTE | 2018-11-20 13:50 | NUR ---
P- DEPRESSED MOOD, BLUNTED AFFECT. I- ORIENTATION, MOOD AND BEHAVIOR ASSESSED. ASSESSED PT FOR SI/HI, INTENT OR PLAN. ASSESSED PT FOR S/S HALLUCINATIONS, PARANOIA AND/OR DELUSIONS. MEDICATIONS ADMINISTERED PER PHYSICIAN'S ORDERS. ENCOURAGED PT TO ATTEND AND PARTICIPATE IN [facility] GROUPS AND ACTIVITIES. OBSERVATION LEVEL ADJUSTED TO Q15 MIN CHECKS PER . R- PT IS ALERT AND ORIENTED X4. MEMORY APPEAR TO BE INTACT. RESPS EASY AND EVEN ON ROOM AIR. PT REPORTS MOOD DEPRESSED, PT STATES "TO BE HONEST, I FEEL DEPRESSED AND SAD EVERYDAY BUT USUALLY I JUST OVERCOME IT, BUT SOMETIMES I CAN'T AND THATS WHEN I DO THINGS I SHOULDN'T. I WAS HELPING TO TAKE CARE OF MY NEICE WHO IS 24 WITH 4 LITTLE KIDS, SHE HAS STAGE 4 KIDNEY CANCER, BUT IT GOT TO BE TOO OVERWHELMING FOR ME AND MADE ME SAD. SO THEY HAD TO GET SOMEONE ELSE AND I JUST WENT AND GOT HIGH. I KNOW I SHOULDN'T DO THAT, SO NOW I'M FOCUSING ON GETTING BETTER FOR ME. I'M LOOKING FORWARD TO BEING ABLE TO ENJOY THIS NICE WEATHER AND NOT HAVE TO STAY IN THE HOUSE ALONE BECAUSE IT'S SO COLD OUTSIDE". PT DENIES SI/HI, INTENT OR PLAN. PT VERBALLY CONTRACTS FOR SAFETY. PT DENIES HALLUCINATIONS INCLUDING COMMAND HALLUCINATIONS. NO S/S INTERNAL STIMULI NOTED. NO PARANOIA OR DELUSIONS NOTED. PT IS CALM, PLEASANT AND COOPERATIVE. INTERACTIVE WITH STAFF, PEERS AND NURSING STUDENTS. PT IS AMBULATORY WITH STEADY GAIT, INDEPENDENT WITH ADLS, CONTINENT OF BOWEL AND BLADDER. DISPLAYS GOOD APPETITE WITH ADEQUATE FLUID INTAKE NOTED. P- PLAN TO CONTINUE CURRENT TREATMENT, CONTINUE TO MONITOR MOOD AND BEHAVIOR, PROVIDE APPROPRIATE REORIENTATION, REDIRECTION AND 1:1 NEEDED. CONTINUE TO ENCOURAGE MEDICATION COMPLIANCE, WELL GROUP ATTENDANCE AND PARTICIPATION.
--- NOTE | 2018-11-20 15:04 | NUR ---
Received Call that patient can discharge to [facility] on if cleared by Dr. Pelletier and Pt. is willing. Will reach out to Director Data Architecture with [facility] to notify and Discuss with patient. [facility] requests that patient have meds from [facility] with her and instructions along with insulin. Call Placed to Hospitalist office and spoke with Leida and notified her that patient would [facility] from [facility].
--- NOTE | 2018-11-20 15:33 | NUR ---
PM GROUP/MOVIE AND LEISURE INTERESTS PT ATTENDED GROUP AND PARTICIPATED BY FINISHING WORK ON A Evolita AND WATCHING THE MOVIE. PT EXPRESSED NO SUICIDAL IDEATIONS OR HALLUCINATIONS DURING GROUP.
--- NOTE | 2018-11-20 15:46 | NUR ---
Spoke with Patient Mcat Tutor at [facility]. Advised that patient would most likely discharge to home at discharge since she does not want to go to [facility]. [facility] states that she just picked client up as Mcat Tutor. [facility] Does not provide Outpatient Alcohol and Drug Detox. Those Services would have to be provided through [facility]. Pt. could continue to have her Case Managerat [facility] but would receive her Outpatient Services through [facility].
--- NOTE | 2018-11-20 15:53 | NUR ---
Referral to [facility] in [place] for Inpatient Attn:
--- NOTE | 2018-11-20 16:14 | NUR ---
Continued review stay clinical left for Cara at [phone] x [phone]. Awaiting determination.
--- NOTE | 2018-11-20 18:10 | NUR ---
SHIFT CHART CHECK COMPLETED.
[2018-11-20 20:00] VITALS: BP 120/70
--- NOTE | 2018-11-20 20:32 | NUR ---
EVENING/MUSIC/GAME PT ATTENDED AND PARTICIPATED. PT PLEASANT ON TASK AND HOPEFUL. PT ENCOURAGING AND POSITIVE TOWARDS PEERS AND THIS STAFF. PT DID NOT EXPRESS ANY SUICIDAL IDEATIONS OR HALLUCINATIONS AT THIS TIME. PT WILL CONTINUE TO ATTEND AND PARTICIPATE IN FUTURE GROUP SESSIONS.
--- NOTE | 2018-11-20 21:43 | NUR ---
Patient alert and oriented x4. Patient said " I am feeling so much better today." Provided 1:1 with patient to encourage further expressions of thoughts and feelings. Patient compliant with medications without any difficulty. No ST/LT memory deficits noted at this time. No SI/HI noted and patient also denies any suicidal thoughts also. Encouraged patient to tell staff if and when she does have these thoughts. No hallucinations/delusions noted at this time. Q 15 minute safety checks continued and maintained. See [facility] flowsheet for further documentation.
--- NOTE | 2018-11-21 00:15 | NUR ---
24 HR chart check completed.
--- NOTE | 2018-11-21 05:19 | NUR ---
Patient slept approx. 8 hours throughout shift. Q 15 minute safety checks continued and maintained.
--- NOTE | 2018-11-21 08:00 | NUR ---
Received Call from [facility]. Referral is declined. Unable to meet client needs.
[2018-11-21 08:10] VITALS: BP 123/70
--- NOTE | 2018-11-21 08:15 | NUR ---
Treatment Plan meeting with Dr. Pelletier, RN, AT and Primary Special Education Teacher. Plan for discharge . Pt. will discharge home and follow up for outpatient Drug and Alcohol Counseling. Pt. has a Whipped Topping Mixer through [facility] and will follow with [facility] and Zachariah Al.
--- NOTE | 2018-11-21 08:17 | NUR ---
PT AWAKE, ALERT, VERBAL AND PLEASANT. ATE 100% OF BREAKFAST WITH 420CC FLUID INTAKE. RESTING QUIETLY IN BED AT THIS TIME. AND ON UNIT TO SEE PT AT THIS TIME, UPDATES PROVIDED.
--- NOTE | 2018-11-21 11:40 | NUR ---
AM GROUP PT ATTENDED AND PARTICIPATED IN ALL GROUP ACTIVITIES. PT WAS TALKATIVE WITH STAFF AND NURSING STUDENTS. PT EXPRESSED NO SUICIDAL IDEATIONS DURING GROUP.
--- NOTE | 2018-11-21 13:23 | NUR ---
P- STABLE MOOD, APPROPRIATE AFFECT. I- ORIENTATION, MOOD AND BEHAVIOR ASSESSED. ASSESSED PT FOR SI/HI, INTENT OR PLAN. ASSESSED PT FOR S/S HALLUCINATIONS, PARANOIA AND/OR DELUSIONS. MEDICATIONS ADMINISTERED PER PHYSICIAN'S ORDERS. ENCOURAGED PT TO ATTEND AND PARTICIPATE IN [facility] GROUPS AND ACTIVITIES. Q15 MIN SAFETY CHECKS MAINTAINED. R- PT IS ALERT AND ORIENTED X4. MEMORY APPEAR TO BE INTACT. MOOD APPEARS MORE STABLE, AFFECT IS APPROPRIATE. SPEECH IS WNL AND COHERENT, ABLE TO MAKE NEEDS KNOWN WITHOUT DIFFICULTY. RESPS EVEN ON ROOM AIR. PT DENIES SI/HI, INTENT OR PLAN. PT VERBALLY CONTRACTS FOR SAFETY. PT DENIES HALLUCINATIONS. NO S/S INTERNAL STIMULI NOTED. NO PARANOIA OR DELUSIONS NOTED. PT REPORTS SHE IS FEELING MUCH BETTER, PT STATES "I WAS REALLY DOWN WHEN I CAME IN HERE BUT THE PEOPLE HERE HAVE REALLY HELPED ME COME OUT OF IT. I FEEL SO MUCH BETTER AND I AM REALLY BLESSED TO HAVE BEEN HERE". PT EXPRESSED THANKS TO SEVERAL STAFF MEMBERS FOR THE CARE PROVIDED. PT IS CALM, PLEASANT AND COOPERATIVE. INTERACTIVE WITH STAFF, PEERS AND NURSING STUDENTS. PT IS AMBULATORY WITH STEADY GAIT, INDEPENDENT WITH ADLS, CONTINENT OF BOWEL AND BLADDER. DISPLAYS GOOD APPETITE WITH ADEQUATE FLUID INTAKE NOTED. P- PLAN TO CONTINUE CURRENT TREATMENT, CONTINUE TO MONITOR MOOD AND BEHAVIOR, PROVIDE APPROPRIATE REORIENTATION, REDIRECTION AND 1:1 NEEDED. CONTINUE TO ENCOURAGE MEDICATION COMPLIANCE, WELL GROUP ATTENDANCE AND PARTICIPATION.
--- NOTE | 2018-11-21 15:01 | NUR ---
PHYSICAL THERAPY PAtient with possible d/c tomorrow. Kassi Blum,PT
--- NOTE | 2018-11-21 15:08 | NUR ---
PM GROUP/WATERCOLORS PT ATTENDED GROUP AND PARTICIPATED BY COMPLETING SEVERAL PAINTINGS. PT WANTED TO GO LAY DOWN BEFORE GROUP WAS OVER AND DID SO. PT EXPRESSED NO SUIDAL IDEATIONS DURING GROUP,
--- NOTE | 2018-11-21 15:37 | NUR ---
Spoke with [facility] egg caser Stephanie Dickson and notified of Pt. discharge tomorrow. states she will follow up with patient at home after discharge.
--- NOTE | 2018-11-21 16:04 | NUR ---
PHYSICAL THERAPY Patient is 100 % (I) functional mobility. Also, patien being discharged tomorrow. Staffing reports no PT needs. Thank you for this referral. Kassi Blum,PT
--- NOTE | 2018-11-21 16:06 | NUR ---
Occupational Therapy referral received and screen completed. Nursing report that patient is independent in ADLS and mobility and is being discharged tomorrow. D/c OT referral. Thank you. Sarai Hood OTR/L
--- NOTE | 2018-11-21 18:45 | NUR ---
SHIFT CHART CHECK COMPLETED.
--- NOTE | 2018-11-21 19:55 | NUR ---
CLIENT IS ORIENTED X'4 AND EXCITED TO BE DISCHARGED. STATES SHE PLANS ON ATTENDING OUTPATIENT THERAPY AND WANTS TO FIND AN AID TO HELP HER WITH HER MEDICATIONS. STATES SHE HAD A GOOD DAY TODAY. MEDICATION COMPLIANT. ATE WELL. GAIT STEADY
[2018-11-21 20:00] VITALS: BP 119/64
--- NOTE | 2018-11-22 02:16 | NUR ---
24 HR chart check completed.
--- NOTE | 2018-11-22 06:25 | NUR ---
SLEPT OVER 8.5 HOURS. UP X'S ONE TO VOID. C/O PEERS YELLING. EMOTIONAL SUPPORT PROVIDED
--- NOTE | 2018-11-22 08:15 | NUR ---
Treatment Plan meeting with Dr. Pelletier, RN, AT and Time Clock Inspector. Plan for discharge today. Pt. to return home. Follow ups have been arranged. Index Clerk for [facility] and [facility] have been notified of pt. discharge today. Provided with Help Hotline Number. Transportation arranged with [employer] to transport with pickling solution maker time 1:00 p.m.
[2018-11-22 08:27] VITALS: BP 114/78
[2018-11-22] MEDS ORDERED: MIRTAZAPINE30 M2 PO (08:50)
[2018-11-22] MEDS ORDERED: Vitamin D PO (08:50)
[2018-11-22] MEDS ORDERED: LATU80TA PO (08:50)
--- NOTE | 2018-11-22 10:51 | NUR ---
DR. ALLRED NOTIFIED OF PATIENT BEING DISCHARGED TODAY, TO INFORM DR. DE SANTIAGO OF TODAY'S DISCHARGE.
--- NOTE | 2018-11-22 11:37 | NUR ---
PT ALERT, ORIENTED X4. PLEASANT, COOPERATIVE WITH ASSESSMENT. PT STATES SHE IS READY TO GO HOME, IS HOPEFUL ABOUT HER FUTURE TREATMENT AND HER ABILITY TO SEEK HELP IF REQUIRED. PT STATES "I THINK I CAN DO THIS". PT DENIES SI/HI. DENIES HALLUCINATIONS OR DELUSIONS. DENIES PAIN OR DISCOMFORT. STATES SHE IS SLEEPING PRETTY WELL, THAT SHE FEELS TIRED STILL IN THE MORNING SO SHE LIKES TO TAKE A NAP. PT TOOK A SHOWER TODAY AND STATED THAT SHE FEELS MUCH BETTER AFTER. Q 15 MIN MONITORING CONTINUES PER POLICY FOR SAFETY.
--- NOTE | 2018-11-22 12:50 | NUR ---
ALL PAPERWORK REVIEWED WITH PT. PT SMILING, LAUGHING, SAYING GOODBYE TO PEERS. PT STATES "I CAN'T WAIT TO GO HOME". PT DISCHARGED OFF UNIT AT THIS TIME VIA WHEELCHAIR ESCORTED BY MILIEU AND LAB COURIER. ALL BELONGINGS AND PAPERWORK SENT WITH PT.
--- NOTE | 2018-11-22 13:13 | NUR ---
IP caleb, LCD 11/21, NRD 11/22 per Cara at [facility].
--- NOTE | 2018-11-22 13:16 | NUR ---
Discharge clinical left for Cara at [facility] on her confidential voicemail, x [phone]
== END 2018-11-22 12:53 | disposition home or self-care (01) | DRG 885 ==
LOC: 3N 16:05
PROVIDERS: ADMIT Psychiatry & Neurology Psychiatry
DX: F31.4 Bipolar disorder, current episode depressed, severe, without psychotic features (principal); R45.851 Suicidal ideations; F34.1 Dysthymic disorder; F19.90 Other psychoactive substance use, unspecified, uncomplicated; F41.9 Anxiety disorder, unspecified; E78.5 Hyperlipidemia, unspecified; E11.42 Type 2 diabetes mellitus with diabetic polyneuropathy; I10 Essential (primary) hypertension; E11.65 Type 2 diabetes mellitus with hyperglycemia; Z79.4 Long term (current) use of insulin